=== PATIENT | female | born 1990 ===

== ENCOUNTER 2017-07-31 08:56 | Emergency (ER) | payer OTHER ==
[~2017-07-31] VITALS: Ht 160 cm; Wt 56.7 kg
[2017-07-31] MEDS ORDERED: IBUP600 PO (09:20)
== END 2017-07-31 09:47 | disposition home or self-care (01) ==
LOC: ER 08:56
DX: O99.73 Diseases of the skin and subcutaneous tissue complicating the puerperium (principal); L25.9 Unspecified contact dermatitis, unspecified cause; Z87.891 Personal history of nicotine dependence